=== PATIENT | female | born 1925 | race Caucasian/White ===

== ENCOUNTER 2016-08-13 19:53 | Observation (INO) | payer OTHER ==
[~2016-08-13] VITALS: Ht 170.2 cm; Wt 52.5 kg
[~2016-08-13 19:53] MED LIST: ACIDOPHILUS1 EAC4 PO; ASPIR 8181 M1 PO; ASPIR-LOW81 MG PO; ATIVAN0.5 MG PO; BACTRIM,SEPT1 TABLET PO; BENADRYL25 MG PO; BENTYL20 MG PO; CARDIZEM CD,CA120 MG PO; CARDIZEM CD,CA240 MG PO; CARDIZEM120 MG PO; CLOPIDOGREL75 MG PO; CYANOCOBALAM1000 MCG PO; DIGOX125 MCG PO; DIGOXIN125 MCG PO; DULCOLAX10 MG PR; ELAVIL25 MG PO; ENZYMATIC DIGE1 EACH PO; FLEET ENEMA EX230 ML PR; KEFLEX500 MG PO; LANOXIN,DIGI0.125 MG PO; LASIX20 MG PO; LEVOTHROID,S0.088 MG PO; LEVOTHYROXINE88 MCG PO; LEVOXYL88 MCG PO; LIPITOR80 MG PO; LISINOPRIL20 MG PO; MAALOX1 ML PO; MAG-OXIDE400 MG PO; MAGNESIUM OXID400 MG PO; MEDROL DOSEPAK4 MG PO; MILK OF MAGN PO; NITROSTAT0.4 MG SL; OMEGA 3 1,0001 EACH PO; OMEGA-31000 M1 PO; OS-CAL 500+D C1 EAC1 PO; PRESERVISIO1 CAPSULE PO; PRESERVISION T1 EACH PO; PRILOSEC20 MG PO; ROBITUSSIN DM118 ML PO; SENNA PLUS TAB1 EACH PO; TOPROL XL50 MG PO; TYLENOL REGULA325 MG PO; VANCOMYCIN HCL125 MG PO; VIT B12; VIT B6; VITAMIN B-650 MG PO; VITAMIN D32000 UNI1 PO; ZESTORETIC 20-1 EACH PO; ZESTRIL20 MG PO; [UNRECOGNIZED DRUG - OTHER]; [UNRECOGNIZED DRUG - OTHER] PO
[2016-08-13 20:38] LABS: HEMATOCRIT 35.7 % (36.0-46.0); MCH 30.8 PG (29.0-34.0); MCHC 31.7 G/DL (30.0-36.0); MCV 97.3 FL (83-99); MEAN PLAT.VOLUME 10.6 uM^3 (9.5-12.4); PLATELET COUNT 126 K/uL (156-360); RBC DIS.WIDTH-CV 13.4 % (11.8-14.6); RBC DIS.WIDTH-SD 47.9 % (39-53); RED BLOOD COUNT 3.67 M/uL (3.80-5.20); WHITE BLOOD COUNT 4.3 K/uL (4.1-10.2)
[2016-08-13 20:51] LABS: CHLORIDE 107 mEq/L (99-109); POTASSIUM 3.5 mEq/L (3.7-5.4); SODIUM 143 mEq/L (136-147)
[2016-08-13 20:53] LABS: GLUCOSE 140 mg/dL (70-99)
[2016-08-13 20:54] LABS: ANION GAP 11 MEQ/L (2-14)
[2016-08-13 20:55] LABS: INTER. NORMALIZED RATIO 1.2; PTT 25.9 (25-32)
[2016-08-13 20:57] LABS: GFR ESTIMATE (CALCULATED) 55 mL/min/; UREA NITROGEN (BUN) 21 mg/dL (9-23)
[2016-08-13 21:23] LABS: TROP-I INTERPRETATION NEGATIVE; TROPONIN-I 0.04 ng/mL (0.0-0.30)
[2016-08-13 23:39] LABS: ADD MIUA? YES; BILIRUBIN NEGATIVE; BLOOD NEGATIVE; COLOR YELLOW ((YELLOW)); GLUCOSE (STRIP) NEGATIVE; KETONES NEGATIVE; LEUKOCYTES LARGE; NITRITE NEGATIVE; PROTEIN (STRIP) NEGATIVE; SPECIFIC GRAVITY 1.021 (1.000-1.030); UROBILINOGEN 0.2 MG/DL (0.2-1.0)
[2016-08-13] MEDS ORDERED: DEPAKOTE SPRIN125 MG PO (23:40)
[2016-08-13] MEDS ORDERED: CHILD ASPIRIN81 M1 PO (23:41)
[2016-08-13] MEDS ORDERED: KLOR-CON20 MEQ PO (23:42)
[2016-08-13] MEDS ORDERED: KLOR-CON M2020 MEQ PO (23:42)
[2016-08-13] MEDS ORDERED: SERTRALINE HCL50 MG PO (23:44)
[2016-08-13] MEDS ORDERED: CRANBERRY405 MG PO (23:47)
[2016-08-13] MEDS ORDERED: [UNRECOGNIZED DRUG - OTHER] PO (23:47)
[2016-08-13] MEDS ORDERED: LIPITOR20 MG PO (23:48)
[2016-08-13] MEDS ORDERED: TYLENOL REGULA325 MG PO (23:48)
[2016-08-13] MEDS ORDERED: RISAMINE OINTM113 GM TP (23:48)
[2016-08-13] MEDS ORDERED: PROCTOSOL-HC28.35 GM PR (23:49)
[2016-08-13] MEDS ORDERED: TRIAMCINOLONE A15 G2 TP (23:49)
[2016-08-13] MEDS ORDERED: IMODIUM A-D2 M2 PO (23:50)
[2016-08-13] MEDS ORDERED: LORAZEPAM0.5 MG PO (23:50)
[2016-08-13] MEDS ORDERED: ROBITUSSIN DM118 ML PO (23:51)
[2016-08-13 23:54] LABS: BACTERIA RARE /HPF; CALCIUM OXALATE CRYSTALS 4+ /HPF; EPITHELIAL CELLS 1+ /HPF; MUCUS TRACE /LPF; UCUL ADDED? NO; WHITE BLOOD CELLS 30-40 /HPF (0-5)
[2016-08-14 02:14] VITALS: BP 128/61
[2016-08-14 07:00] VITALS: BP 123/62
[2016-08-14 10:38] LABS: HEMATOCRIT 35.4 % (36.0-46.0); MCH 30.8 PG (29.0-34.0); MCHC 31.1 G/DL (30.0-36.0); MCV 99.2 FL (83-99); MEAN PLAT.VOLUME 11.1 uM^3 (9.5-12.4); PLATELET COUNT 115 K/uL (156-360); RBC DIS.WIDTH-CV 13.6 % (11.8-14.6); RBC DIS.WIDTH-SD 49.4 % (39-53); RED BLOOD COUNT 3.57 M/uL (3.80-5.20); WHITE BLOOD COUNT 4.9 K/uL (4.1-10.2)
[2016-08-14 10:57] VITALS: BP 121/57
[2016-08-14 11:05] LABS: ANION GAP 10 MEQ/L (2-14); CHLORIDE 110 MEQ/L (99-109); POTASSIUM 3.7 MEQ/L (3.7-5.4); SAMPLE HEMOLYSIS CHECK 0; SAMPLE ICTERIC CHECK 0; SAMPLE LIPEMIA CHECK 0; SODIUM 146 MEQ/L (136-147); TOTAL BILIRUBIN 0.5 MG/DL (0.0-1.0)
[2016-08-14 11:11] LABS: ALKALINE PHOSPHATASE 60 IU/L (3-129); GFR ESTIMATE (CALCULATED) > 59 mL/min/; GLUCOSE 113 mg/dL (70-99); UREA NITROGEN (BUN) 14 mg/dL (9-23)
[2016-08-14 11:13] VITALS: BP 126/71
[2016-08-14 11:14] VITALS: BP 175/66
[2016-08-14 11:15] LABS: TROP-I INTERPRETATION NEGATIVE; TROPONIN-I 0.03 ng/mL (0.0-0.30)
[2016-08-14] MEDS ORDERED: CIPRO250 MG PO (15:14)
[2016-08-14 16:18] LABS: TROP-I INTERPRETATION NEGATIVE; TROPONIN-I 0.03 ng/mL (0.0-0.30)
== END 2016-08-14 16:46 | disposition home or self-care (01) ==
LOC: EME → EDBD 19:53 → EDOF 08-14 00:30 → 5WEST 08-14 01:52
PROVIDERS: Emergency Medicine; Hospitalist
PROC: 0HQ0XZZ Repair Scalp Skin, External Approach (ICD-10-PCS; principal; 2016-08-14)
DX: R55 Syncope and collapse (principal); S01.01XA Laceration without foreign body of scalp, initial encounter; W19.XXXA Unspecified fall, initial encounter; E87.6 Hypokalemia; D69.6 Thrombocytopenia, unspecified; M25.551 Pain in right hip; I48.2 Chronic atrial fibrillation; D64.9 Anemia, unspecified; I10 Essential (primary) hypertension; K21.9 Gastro-esophageal reflux disease without esophagitis; E03.9 Hypothyroidism, unspecified; F03.90 Unspecified dementia, unspecified severity, without behavioral disturbance, psychotic disturbance, mood disturbance, and anxiety; I25.10 Atherosclerotic heart disease of native coronary artery without angina pectoris; I25.2 Old myocardial infarction; Z95.5 Presence of coronary angioplasty implant and graft; Z85.3 Personal history of malignant neoplasm of breast; E55.9 Vitamin D deficiency, unspecified; Z86.73 Personal history of transient ischemic attack (TIA), and cerebral infarction without residual deficits
CPT/HCPCS: 70450; 72170; 73502; 80048; 80053; 80162; 81003; 84484; 85027; 85610; 85730; 87086; 93005; 93971; 99281; 99285; G0378; J0696; J1644; J3480; J7030; J7050

== ENCOUNTER 2016-08-23 04:57 | Emergency (ER) | payer OTHER ==
[~2016-08-23] VITALS: Ht 167.6 cm; Wt 53.3 kg
[~2016-08-23 04:57] MED LIST changes: +CHILD ASPIRIN81 M1 PO; +CIPRO250 MG PO; +CRANBERRY405 MG PO; +DEPAKOTE SPRIN125 MG PO; +IMODIUM A-D2 M2 PO; +KLOR-CON M2020 MEQ PO; +KLOR-CON20 MEQ PO; +LIPITOR20 MG PO; +LORAZEPAM0.5 MG PO; +PROCTOSOL-HC28.35 GM PR; +RISAMINE OINTM113 GM TP; +SERTRALINE HCL50 MG PO; +TRIAMCINOLONE A15 G2 TP; +[UNRECOGNIZED DRUG - OTHER] PO
[2016-08-23 06:15] VITALS: BP 133/69
== END 2016-08-23 09:03 | disposition home or self-care (01) ==
LOC: EME → EDBD 04:57 → EME 09:03
DX: S01.01XA Laceration without foreign body of scalp, initial encounter (principal); S09.8XXA Other specified injuries of head, initial encounter; S20.229A Contusion of unspecified back wall of thorax, initial encounter; S20.419A Abrasion of unspecified back wall of thorax, initial encounter; W06.XXXA Fall from bed, initial encounter; Y92.193 Bedroom in other specified residential institution as the place of occurrence of the external cause; Z79.02 Long term (current) use of antithrombotics/antiplatelets; Z79.82 Long term (current) use of aspirin; F03.90 Unspecified dementia, unspecified severity, without behavioral disturbance, psychotic disturbance, mood disturbance, and anxiety; I10 Essential (primary) hypertension; E03.9 Hypothyroidism, unspecified; Z87.891 Personal history of nicotine dependence
CPT/HCPCS: 70450; 71010; 72125; 72128; 72170; 99281; 99285

== ENCOUNTER 2016-10-14 20:40 | Emergency (ER) | payer OTHER ==
[~2016-10-14] VITALS: Ht 167.6 cm; Wt 55.6 kg
[2016-10-14 21:25] LABS: EOSINOPHIL (%) 2.6 % (0-5); EOSINOPHIL COUNT 0.1 K/uL (0-0.3); HEMATOCRIT 33.3 % (36.0-46.0); IMMATURE GRANULOCYTE (%) 0.2 % (0.0-0.7); INSTRUMENT ABS NEUTROPHIL CT 3.2 K/uL; LYMPHOCYTE COUNT 0.8 K/uL (1.0-2.8); MCH 31.2 PG (29.0-34.0); MCHC 32.1 G/DL (30.0-36.0); MCV 97.1 FL (83-99); MEAN PLAT.VOLUME 10.3 uM^3 (9.5-12.4); MONOCYTE (%) 10.7 % (3-12); MONOCYTE COUNT 0.5 K/uL (0-0.8); NEUTROPHIL COUNT 3.2 K/uL (1.8-6.4); PLATELET COUNT 134 K/uL (156-360); RBC DIS.WIDTH-SD 46.6 % (39-53); RED BLOOD COUNT 3.43 M/uL (3.80-5.20); WHITE BLOOD COUNT 4.7 K/uL (4.1-10.2)
[2016-10-14 21:39] LABS: CHLORIDE 107 mEq/L (99-109); POTASSIUM 3.6 mEq/L (3.7-5.4); SODIUM 143 mEq/L (136-147)
[2016-10-14 21:41] LABS: GLUCOSE 110 mg/dL (70-99)
[2016-10-14 21:42] LABS: ANION GAP 10 MEQ/L (2-14)
[2016-10-14 21:45] LABS: GFR ESTIMATE (CALCULATED) > 59 mL/min/
[2016-10-14 21:46] LABS: UREA NITROGEN (BUN) 19 mg/dL (9-23)
[2016-10-14 21:53] LABS: TROP-I INTERPRETATION NEGATIVE; TROPONIN-I < 0.01 ng/mL (0.0-0.30)
[2016-10-14 22:52] LABS: ADD MIUA? YES; BILIRUBIN NEGATIVE; BLOOD NEGATIVE; COLOR YELLOW ((YELLOW)); GLUCOSE (STRIP) NEGATIVE; KETONES NEGATIVE; LEUKOCYTES LARGE; NITRITE NEGATIVE; PROTEIN (STRIP) NEGATIVE; UROBILINOGEN 0.2 MG/DL (0.2-1.0)
[2016-10-14 23:06] LABS: BACTERIA NONE SEEN /HPF; CALCIUM OXALATE CRYSTALS 4+ /HPF; EPITHELIAL CELLS RARE /HPF; HYALINE CASTS 0-5 /LPF; MUCUS TRACE /LPF; RED BLOOD CELLS 0-5 /HPF (0-5); UCUL ADDED? NO; WHITE BLOOD CELLS 40-50 /HPF (0-5)
[2016-10-15 00:49] VITALS: BP 139/73
== END 2016-10-15 00:51 | disposition home or self-care (01) ==
LOC: EME → EDBD 20:40 → EME 20:40
PROVIDERS: Emergency Medicine
DX: M25.552 Pain in left hip (principal); F03.90 Unspecified dementia, unspecified severity, without behavioral disturbance, psychotic disturbance, mood disturbance, and anxiety; I48.91 Unspecified atrial fibrillation; Z79.02 Long term (current) use of antithrombotics/antiplatelets; I10 Essential (primary) hypertension; F31.9 Bipolar disorder, unspecified; F41.9 Anxiety disorder, unspecified; E03.9 Hypothyroidism, unspecified; R33.9 Retention of urine, unspecified; Z87.891 Personal history of nicotine dependence
CPT/HCPCS: 70450; 73502; 80048; 81003; 84484; 85025; 93005; 99281; 99284

== ENCOUNTER 2016-10-25 20:39 | Emergency (ER) | payer OTHER ==
[~2016-10-25] VITALS: Ht 170.2 cm; Wt 48.5 kg
[2016-10-25 22:46] LABS: HEMATOCRIT 33.4 % (36.0-46.0); MCH 31.3 PG (29.0-34.0); MCV 97.7 FL (83-99); MEAN PLAT.VOLUME 9.6 uM^3 (9.5-12.4); PLATELET COUNT 188 K/uL (156-360); RBC DIS.WIDTH-CV 13.5 % (11.8-14.6); RBC DIS.WIDTH-SD 47.8 % (39-53); RED BLOOD COUNT 3.42 M/uL (3.80-5.20); WHITE BLOOD COUNT 5.2 K/uL (4.1-10.2)
[2016-10-25 22:53] LABS: ADD MIUA? YES; BILIRUBIN NEGATIVE; BLOOD NEGATIVE; COLOR YELLOW ((YELLOW)); GLUCOSE (STRIP) NEGATIVE; KETONES NEGATIVE; LEUKOCYTES MODERATE; NITRITE NEGATIVE; PROTEIN (STRIP) 30; SPECIFIC GRAVITY 1.027 (1.000-1.030); UROBILINOGEN 0.2 MG/DL (0.2-1.0)
[2016-10-25 22:58] LABS: BACTERIA NONE SEEN /HPF; CALCIUM OXALATE CRYSTALS 4+ /HPF; EPITHELIAL CELLS 1+ /HPF; GRANULAR CASTS 0-5 /LPF; HYALINE CASTS 0-5 /LPF; MUCUS TRACE /LPF; RED BLOOD CELLS 0-5 /HPF (0-5); UCUL ADDED? YES; WHITE BLOOD CELLS TNTC /HPF (0-5)
[2016-10-25 23:06] LABS: CHLORIDE 110 mEq/L (99-109); SODIUM 143 mEq/L (136-147)
[2016-10-25 23:08] LABS: GLUCOSE 110 mg/dL (70-99)
[2016-10-25 23:09] LABS: ANION GAP 8 MEQ/L (2-14)
[2016-10-25 23:10] LABS: TROP-I INTERPRETATION NEGATIVE; TROPONIN-I < 0.01 ng/mL (0.0-0.30)
[2016-10-25 23:12] LABS: GFR ESTIMATE (CALCULATED) 55 mL/min/; UREA NITROGEN (BUN) 32 mg/dL (9-23)
[2016-10-25] MEDS ORDERED: CARDIZEM LA180 MG PO (23:20)
[2016-10-25] MEDS ORDERED: KEFLEX500 MG PO (23:24)
[2016-10-26 00:44] VITALS: BP 122/92
== END 2016-10-26 00:57 ==
LOC: EME 20:39
PROVIDERS: Emergency Medicine
DX: N39.0 Urinary tract infection, site not specified (principal); E86.0 Dehydration; I95.9 Hypotension, unspecified; F03.90 Unspecified dementia, unspecified severity, without behavioral disturbance, psychotic disturbance, mood disturbance, and anxiety; I48.91 Unspecified atrial fibrillation; I10 Essential (primary) hypertension; Z79.01 Long term (current) use of anticoagulants; Z87.891 Personal history of nicotine dependence; Z66 Do not resuscitate
CPT/HCPCS: 71020; 80048; 81003; 83880; 84484; 85027; 87086; 93005; 99281; 99285; J7030